=== PATIENT | male | born 1970 | race African-American/Black ===

== ENCOUNTER 2017-01-18 02:51 | Emergency (ER) | payer BC, OTHER ==
[2017-01-18] MEDS ORDERED: Aspirin Low Dose CHEW TAB* 81 MG PO ONE (03:08)
[2017-01-18 03:32] LABS: Hematocrit 44 % (42-52); Hemoglobin 15.1 g/dl (14.0-18.0); Mean Corpuscular HGB Conc 35 g/dl (31-36); Mean Corpuscular Hemoglobin 32 pg (27-31); Mean Corpuscular Volume 92 fL (80-94); Mean Platelet Volume 7 um3 (7.4-10.4); Red Blood Count 4.77 10^6/ul (4.0-5.4); Red Cell Distribution Width 13 % (10.5-15); White Blood Count 6.3 10^3/ul (3.5-10.8)
[2017-01-18 03:35] LABS: Albumin 4.4 g/dL (3.2-5.2); BUN/Creatinine Ratio 16.9 (8-20); Calcium 9.5 mg/dL (8.6-10.3); EGFR African American 85.5 (>60); EGFR Non-African American 66.5 (>60); Globulin 3.1 g/dL (2-4); Potassium 3.8 mmol/L (3.5-5.0); Total Bilirubin 0.4 mg/dL (0.2-1.0); Total Protein 7.5 g/dL (6.4-8.9)
--- NOTE | 2017-01-18 04:43 | ED ---
andry Lazcano Timothy, scribed for Thompson Donnelly MD on 01/18/17 at 0309 . HPI Chest Pain - HPI Summary HPI Summary: Pa Almaguer is a 46 yo male presenting to [facility] with 4/10 CP and high blood pressure taken at home since 1900 last night, accompanied by left arm numbness and dizziness. Pt states CP started first, then he went to sleep and woke up with pain and left arm numbness. He states that he has had similar CP in the past that has been intermittent for years. His Mx includes colonoscopy. - History of Current Complaint Time Seen by Provider: 01/18/17 03:03 Hx Obtained From: Patient Onset/Duration: Started Hours Ago, Atraumatic, Still Present Time of Onset: 19:00 Timing: Constant Initial Severity: Moderate Current Severity: Moderate Pain Intensity: 4 Pain Scale Used: 0-10 Numeric Chest Pain Radiates: No Associated Signs and Symptoms: Positive: Chest Pain, Numbness - left arm, Other : - high blood pressure - Allergy/Home Medications Allergies/Adverse Reactions: Allergies Allergy/AdvReac Type Severity Reaction Status Date / Time No Known Allergies Allergy Verified 02/13/14 21:11 PMH/Surg Hx/FS Hx/Imm Hx - Surgical History Surgery Procedure, Year, and Place: COLONOSCOPY Infectious Disease History: No Infectious Disease History: Denies: Traveled Outside the [place] in Last 30 Days - Family History Known Family History: Positive: Hypertension, Diabetes Negative: Cardiac Disease - Social History Alcohol Use: Occasionally Substance Use Type: Reports: None Smoking Status (MU): Never Smoked Tobacco Review of Systems Constitutional: Other - high blood pressure Eyes: Negative ENT: Negative Positive: Chest Pain Respiratory: Negative Gastrointestinal: Negative Genitourinary: Negative Musculoskeletal: Negative Skin: Negative Neurological: Other - dizziness Positive: Numbness - left arm Psychological: Normal All Other Systems Reviewed And Are Negative: Yes Physical Exam Triage Information Reviewed: Yes Vital Signs On Initial Exam: Initial Vitals Temp Pulse Resp BP Pulse Ox 96.9 F 62 18 147/83 98 01/18/17 02:57 01/18/17 02:57 01/18/17 02:57 01/18/17 02:57 01/18/17 02:57 Vital Signs Reviewed: Yes Appearance: Positive: Well-Appearing, No Pain Distress Skin: Positive: Warm Head/Face: Positive: Normal Head/Face Inspection Eyes: Positive: WILLIAN ENT: Positive: Hearing grossly normal Neck: Positive: Supple Respiratory/Lung Sounds: Positive: Clear to Auscultation, Breath Sounds Present Cardiovascular: Positive: RRR Abdomen Description: Positive: Nontender, Soft Bowel Sounds: Positive: Present Musculoskeletal: Positive: Strength/ROM Intact Neurological: Positive: Alert, Oriented to Person Place, Time Psychiatric: Positive: Affect/Mood Appropriate Diagnostics - Vital Signs Vital Signs Temp Pulse Resp BP Pulse Ox 01/18/17 02:57 96.9 F 62 18 147/83 98 - Laboratory Lab Results: Lab Results 01/18/17 01/18/17 01/18/17 Range/Units 03:10 03:10 03:10 WBC 6.3 (3.5-10.8) 10^3/ul RBC 4.77 (4.0-5.4) 10^6/ul Hgb 15.1 (14.0-18.0) g/dl Hct 44 (42-52) % MCV 92 (80-94) fL MCH 32 H (27-31) pg MCHC 35 (31-36) g/dl RDW 13 (10.5-15) % Plt Count 298 (150-450) 10^3/ul MPV 7 L (7.4-10.4) um3 Neut % (Auto) 59.0 (38-83) % Lymph % (Auto) 27.3 (25-47) % Emanuel % (Auto) 8.4 (1-9) % Eos % (Auto) 4.0 (0-6) % Baso % (Auto) 1.3 (0-2) % Absolute Neuts (auto) 3.7 (1.5-7.7) 10^3/ul Absolute Lymphs (auto) 1.7 (1.0-4.8) 10^3/ul Absolute Monos (auto) 0.5 (0-0.8) 10^3/ul Absolute Eos (auto) 0.3 (0-0.6) 10^3/ul Absolute Basos (auto) 0.1 (0-0.2) 10^3/ul Absolute Nucleated RBC 0.01 10^3/ul Nucleated RBC % 0.2 Sodium 134 (133-145) mmol/L Potassium 3.8 (3.5-5.0) mmol/L Chloride 106 (101-111) mmol/L Carbon Dioxide 23 (22-32) mmol/L Anion Gap 5 (2-11) mmol/L BUN 20 (6-24) mg/dL Creatinine 1.18 H (0.67-1.17) mg/dL Est GFR ( Amer) 85.5 (>60) Est GFR (Non-Af Amer) 66.5 (>60) BUN/Creatinine Ratio 16.9 (8-20) Glucose 99 (70-100) mg/dL Lactic Acid 0.8 (0.5-2.0) mmol/L Calcium 9.5 (8.6-10.3) mg/dL Total Bilirubin 0.40 (0.2-1.0) mg/dL AST 31 (13-39) U/L ALT 28 (7-52) U/L Alkaline Phosphatase 45 (34-104) U/L Troponin I 0.00 (<0.04) ng/mL Total Protein 7.5 (6.4-8.9) g/dL Albumin 4.4 (3.2-5.2) g/dL Globulin 3.1 (2-4) g/dL Albumin/Globulin Ratio 1.4 (1-3) Result Diagrams: 01/18/17 03:10 01/18/17 03:10 Lab Statement: Any lab studies that have been ordered have been reviewed, and results considered in the medical decision making process. - Radiology CXR Xray Interpretation: No Acute Changes - No acute disease Radiology Interpretation Completed By: ED Physician - EKG 0257 Cardiac Rate: Bradycardia - 45 BPM EKG Interpretation: Sinus bradycardia @ 45 BPM Re-Evaluation - Re-Evaluation First Eval Re-Evaluation Time: 06:52 Change: Improved Comment: reviewed lab and imaging study results with Pt and answered questions to his satisfaction. Chest Pain Course/Dx - Course Assessment/Plan: Pa Almaguer is a 46 yo male presenting to [facility] with 4/10 CP since 1900 last night, followed by left arm numbness, dizziness, and high blood pressure taken at home later in the night. Pt medication list is reviewed this visit. In the ED course he received ASA. His EKG suggests sinus bradycardia. His CXR suggests no acute disease. After clinical examination and review of his lab and imaging studies, he will be discharged home with chest pain with appropriate instructions. - Chest Pain Differential Diagnosis/HQI/PQRI: Other: - chest pain - Diagnoses Provider Diagnoses: Chest pain Discharge - Discharge Plan Condition: Stable Disposition: HOME Patient Education Materials: Chest Pain (ED) Referrals: Jason Eddy MD [Primary Care Provider] - 2 Days Additional Instructions: Please follow up with your primary care physician regarding your visit to the emergency department today. Return to the emergency department with any new or recurring symptoms. The documentation as recorded by the andry mora Timothy accurately reflects the service I personally performed and the decisions made by , Thompson Donnelly MD.
[2017-01-18 06:56] VITALS: BP 138/74
--- NOTE | 2017-01-18 07:46 | RAD ---
HISTORY: Chest pain COMPARISONS: June 12, 2014 VIEWS: 2: Frontal dual-energy and lateral views of the chest. FINDINGS: CARDIOMEDIASTINAL SILHOUETTE: The cardiomediastinal silhouette is normal. NITHIN: The nitihn are normal. PLEURA: The costophrenic angles are sharp. No pleural abnormalities are noted. LUNG PARENCHYMA: The lungs are clear. ABDOMEN: The upper abdomen is clear. There is no subphrenic gas. BONES AND SOFT TISSUES: No bone or soft tissue abnormalities are noted. OTHER: None. IMPRESSION: NO ACTIVE CARDIOPULMONARY DISEASE.
== END 2017-01-18 07:07 | disposition home or self-care (01) ==
LOC: ED 02:51
DX: R07.9 Chest pain, unspecified (principal); R20.0 Anesthesia of skin; I10 Essential (primary) hypertension
CPT/HCPCS: 36415; 71020; 80053; 83605; 84484; 85025; 93005; 99282; A9270-GY

== ENCOUNTER 2018-02-22 12:48 | Emergency (ER) | payer BC, OTHER ==
[2018-02-22 13:31] VITALS: BP 124/70
--- NOTE | 2018-02-22 13:57 | ED ---
Complex/Multi-Sys Presentation - HPI Summary HPI Summary: This is morgan Bonilla documenting for attending Leann Ace M.D. 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 The [place] [employer] was on the scene at the time the officer (this patient) was investigating and the Fire Department had determined that it was safe for the suicide patient to enter the [facility] [place] [place] ED without prior decontamination. The pt who attempted suicide was later awake enough to draw the chemical structure of copper cyanide that identified the substance that he had ingested, and that the officer was investigating. The officer (this pt) did not physically touch any substances. The officer (this pt) denies [place], nausea, CP, dizziness, SOB. The officer states his only contact with anything related to the suicide pt was handling that pts ID. The officer wore a mask and gloves in that pt's apartment. The officer (this pt) had a mask on while in ED, ICU and did not touch the patient or his clothes or anything related to the suicide patient while the officer (this pt) was in the ED. This pt takes no prescription medications, has no PSHx, NKDA, +FHx of DM, rheumatism. Denies PMHx DM himself. - History Of Current Complaint Chief Complaint: EDExposureBodyFluid Hx Obtained From: Patient, EMS, Other: - [place] [employer] [facility], [facility], prior patient in the ED that Dr. Ace cared for who had presented with copper cyanide ingestion. Onset/Duration: Sudden Onset, Resolved Timing: Seconds Severity Currently: None Severity Initially: Mild Location: Negative Aggravating Factor(s): Possible CuCN exposure Alleviating Factor(s): nothing Associated Signs And Symptoms: Negative: Dizziness, Headache, SOB, Chest Pain, Nausea Related History: Other - officer (this pt) investigated a copper cyanide overdose ingestion today - Allergies/Home Medications Allergies/Adverse Reactions: Allergies Allergy/AdvReac Type Severity Reaction Status Date / Time No Known Allergies Allergy Verified 02/13/14 21:11 PMH/Surg Hx/FS Hx/Imm Hx Previously Healthy: Yes Endocrine/Hematology History: Denies: Hx Diabetes Cardiovascular History: Denies: Hx Hypertension, Hx Myocardial Infarction Respiratory History: Denies: Hx Lung Cancer History: Denies: Hx Chronic Renal Failure Musculoskeletal History: Denies: Hx Osteoporosis Sensory History: Denies: Hx Legally Blind, Hx Deafness Opthamlomology History: Denies: Hx Legally Blind EENT History: Denies: Hx Deafness Neurological History: Denies: Hx CVA Psychiatric History: Denies: Hx Panic Disorder - Surgical History Surgery Procedure, Year, and Place: COLONOSCOPY Infectious Disease History: No Infectious Disease History: Denies: Traveled Outside the [place] in Last 30 Days - Family History Known Family History: Positive: Hypertension, Diabetes Negative: Cardiac Disease - Social History 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 Alcohol Use: Occasionally Substance Use Type: Reports: None Smoking Status (MU): Never Smoked Tobacco Review of Systems Negative: Fever Eyes: Negative ENT: Negative Negative: Chest Pain Negative: Shortness Of Breath Gastrointestinal: Negative Negative: Nausea Positive: no symptoms reported Skin: Negative Neurological: Negative Negative: Headache Psychological: Normal All Other Systems Reviewed And Are Negative: Yes Physical Exam - Summary Physical Exam Summary: Appearance: Well-appearing, no pain distress, well-nourished Skin: Warm, color reflects adequate perfusion, dry Head: Normal Head/Face inspection, atraumatic Eyes: Conjunctiva clear ENT: Normal inspection Neck: Supple, no nodes, no JVD Respiratory: Lungs clear, normal breath sounds, no respiratory distress Cardio: RRR, No murmur, pulses normal, brisk capillary refill Abdomen: Soft, nontender Bowel sounds: Present Musculoskeletal: Strength Intact/ROM intact, no calf tenderness, no edema. Psychological: Normal Neuro: Alert, muscle tone normal, no focal deficit Triage Information Reviewed: Yes Vital Signs On Initial Exam: Initial Vitals Temp Pulse Resp BP Pulse Ox 97.6 F 81 16 128/69 99 02/22/18 12:51 02/22/18 12:51 02/22/18 12:51 02/22/18 12:51 02/22/18 12:51 Vital Signs Reviewed: Yes Diagnostics - Vital Signs Vital Signs Temp Pulse Resp BP Pulse Ox 02/22/18 13:31 98.6 F 75 16 124/70 100 02/22/18 12:51 97.6 F 81 16 128/69 99 - Laboratory Lab Statement: Any lab studies that have been ordered have been reviewed, and results considered in the medical decision making process. Re-Evaluation - Re-Evaluation First Eval Re-Evaluation Time: 13:30 Change: Unchanged Comment: remains asymptomatic. Understands discharge instructions. Wants to continue working today. 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 The suicide pt that the officer investigated, confirmed copper cyanide was what he ingested. This officer recovered two unlabeled substances from the suicide investigation, but did not touch them or inhale them. The [place] [employer] had determined that the suicide pt was safe to enter the [facility] [place] [place] ED without prior decontamination based on the substances they recovered. This pt was asymptomatic, however due to cyanide exposure was advised to be evaluated by his chief. Pt was found without history or physical findings to indicate any red flags for manifestation of any toxicity. The patient was discharged with diagnosis normal exam after exposure to possible toxic agent, and advised that he could return to work, with advice to return to the ED with any new or worsening symptoms. - Diagnoses Differential Diagnoses/HQI/PQRI: Metabolic Abnormality, Other - toxic exposure Provider Diagnoses: Normal exam, Exposure to chemical compounds Discharge - Sign-Out/Discharge Documenting (check all that apply): Patient Departure - discharge - Discharge Plan Condition: Stable Disposition: HOME Patient Education Materials: Normal Exam (ED) Referrals: Jason Eddy MD [Primary Care Provider] - 1 Day (As needed.) Additional Instructions: Return to the emergency department for any changing or worsening symptoms. - Billing Disposition and Condition Condition: STABLE Disposition: Home
== END 2018-02-22 13:34 | disposition home or self-care (01) ==
LOC: ED 12:48
DX: Z77.29 Contact with and (suspected) exposure to other hazardous substances (principal)
CPT/HCPCS: 99281